=== PATIENT | male | born 1995 | race African-American/Black ===

== ENCOUNTER 2018-01-08 17:13 | Emergency (ER) | payer OTHER ==
[2018-01-08 17:26] VITALS: BP 118/66; PULSE 90; TEMP 98.5; BMI 21.7
--- NOTE | 2018-01-08 17:26 | PDOC ---
Rapid Medical Evaluation Time Seen by Provider: 01/08/18 17:21 Medical Evaluation: 01/08/18 17:21 I have performed a brief in-person evaluation of this patient. The patient presents with a chief complaint of: throat pain and toothache x 2 days. Seen at urgent care received "injection for strep throat". Taking amoxicillin, started yesterday Pertinent physical exam findings are: NAD even and unlabored breathing I have ordered the following: none The patient will proceed o the Ed for further evaluation.
[2018-01-08] MEDS ORDERED: IBUPROFEN 400 MG TABLET (FP) PO ONE ×2 (18:15→18:18)
--- NOTE | 2018-01-08 18:17 | PDOC ---
History of Present Illness - General Chief Complaint: Sore Throat Stated Complaint: SORE THROAT Time Seen by Provider: 01/08/18 17:21 History Source: Patient Exam Limitations: No Limitations - History of Present Illness Initial Comments: 01/08/18 18:19 Pt is a 22 y/o M with no PMH who presents to the ED with throat pain and toothache x 2 days. Seen at urgent care received "injection for strep throat". He is taking amoxicillin as well, which he started taking yesterday. He has not taken any mediation for pain. Denies fevers, chills, ear ache, difficulty swallowing, SOB, CP, n/v/d. Past History - Travel Traveled outside of the country in the last 30 days: No Close contact w/someone who was outside of country & ill: No - Past Medical History Allergies/Adverse Reactions: Allergies Allergy/AdvReac Type Severity Reaction Status Date / Time No Known Allergies Allergy Verified 01/08/18 17:21 Home Medications: Ambulatory Orders Amoxicillin - [Amoxicillin 875mg Tablet -] 875 mg PO BID 01/08/18 Ibuprofen 800 mg PO TID #30 tablet 01/08/18 COPD: No - Suicide/Smoking/Psychosocial Hx Smoking History: Current every day smoker Have you smoked in the past 12 months: Yes Information on smoking cessation initiated: No Hx Alcohol Use: (marijuana) Substance Use Type: Marijuana Review of Systems - Review of Systems Able to Perform ROS?: Yes Comments:: 01/08/18 18:20 CONSTITUTIONAL: Absent: fever, chills, diaphoresis, generalized weakness, malaise, loss of appetite HEENT: Present: sore throat Absent: rhinorrhea, nasal congestion, throat swelling, difficulty swallowing, mouth swelling, ear pain, eye pain, visual Changes CARDIOVASCULAR: Absent: chest pain, loss of consciousness, palpitations, irregular heart rate, peripheral edema RESPIRATORY: Absent: cough, shortness of breath, dyspnea with exertion, orthopnea, wheezing, stridor, hemoptysis GASTROINTESTINAL: Absent: abdominal pain, abdominal distension, nausea, vomiting, diarrhea, constipation, melena, hematochezia GENITOURINARY: Absent: dysuria, frequency, urgency, hesitancy, hematuria, flank pain, genital pain MUSCULOSKELETAL: Absent: myalgia, arthralgia, joint swelling SKIN: Absent: rash, itching, pallor HEMATOLOGIC/IMMUNOLOGIC: Absent: easy bleeding, easy bruising, lymphadenopathy, frequent infections ENDOCRINE: Absent: unexplained weight gain, unexplained weight loss, heat intolerance, cold intolerance NEUROLOGIC: Absent: headache, focal weakness or paresthesias, dizziness, unsteady gait, seizure, mental status changes, bladder or bowel incontinence PSYCHIATRIC: Absent: anxiety, depression, suicidal or homicidal ideation, hallucinations. Is the patient limited Luxembourger proficient: No *Physical Exam - Vital Signs Last Vital Signs Temp Pulse Resp BP Pulse Ox 98.5 F 90 18 118/66 99 01/08/18 17:25 01/08/18 17:25 01/08/18 17:25 01/08/18 17:25 01/08/18 17:25 - Physical Exam Comments: 01/08/18 18:21 GENERAL: Well developed, well nourished. Awake and alert. No acute distress. HEENT: Normocephalic, atraumatic. PERRLA, EOMI. No conjunctival pallor. Sclera are non- icteric. Moist mucous membranes. Oropharynx is clear. Tonsils are 1+ with no exudate or erythema. Uvula is midline. No sinus tenderness to palpation. Good dentition with no evidence of cavity or abscess, or gingivitis NECK: Supple. Full ROM. No JVD. Carotid pulses 2+ and symmetric, without bruits. No thyromegaly. No lymphadenopathy. CARDIOVASCULAR: Regular rate and rhythm. No murmurs, rubs, or gallops. Distal pulses are 2+ and symmetric. PULMONARY: No evidence of respiratory distress. Lungs clear to auscultation bilaterally. No wheezing, rales or rhonchi. SKIN: Warm and dry. Normal capillary refill. No rashes. No jaundice. NEUROLOGICAL: Alert, awake, appropriate. Cranial nerves 2-12 intact. No deficits to light touch and temperature in face, upper extremities and lower extremities. No motor deficits in the in face, upper extremities and lower extremities. Normoreflexic in the upper and lower extremities. Normal speech. Toes are down- going bilaterally. Gait is normal without ataxia. PSYCHIATRIC: Cooperative. Good eye contact. Appropriate mood and affect. Medical Decision Making - Medical Decision Making 01/08/18 18:24 Pt is a 22 y/o M with no PMH who presents to the ED with throat pain and toothache x 2 days. -Exam with no positive findings. Tonsils 1+ with no edema,erythema, or exudate -Will not perform rapid strep as pt already on abx -Pt to continue abx for presumed strep infection -Ibuprofen given for pain relief. -DC home -I discussed the physical exam findings, ancillary test results and final diagnoses with the patient. I answered all of the patient's questions. The patient was satisfied with the care received and felt comfortable with the discharge plan and treatment plan. The Patient agrees to follow up with the primary care physician/specialist within 24-72 hours. Return precautions were given. *DC/Admit/Observation/Transfer Diagnosis at time of Disposition: Pharyngitis Qualifiers: Pharyngitis/tonsillitis etiology: unspecified etiology Qualified Code(s): J02.9 - Acute pharyngitis, unspecified - Discharge Dispostion Disposition: HOME Condition at time of disposition: Stable Decision to Admit order: No - Prescriptions Prescriptions: Ibuprofen 800 mg PO TID #30 tablet - Referrals Referrals: Ion Le MD [Staff Physician] - Benigno Sunshine MD [Staff Physician] - - Patient Instructions Printed Discharge Instructions: DI for Pharyngitis/Tonsillopharyngitis -- Adult Additional Instructions: You have a sore throat. Please continue the amoxicillin 500 mg twice a day for one week. Please finish the prescription even if you feel better. You may take Motrin 800 mg every 8 hours as needed for pain or fever. Warm water gargles and cough drops and just may also help her symptoms. Please throw way your toothbrush 3 days into treatment to prevent reinfection. Please follow up with your primary care doctor next week. Return to emergency department if you have worsening pain, difficulty swallowing , changes in your voice, lightheadedness, dizziness, or any changes in your symptoms. - Post Discharge Activity Forms/Work/School Notes: Back to Work
== END 2018-01-08 18:20 | disposition home or self-care (01) ==
LOC: JERFT 17:13
DX: J02.9 Acute pharyngitis, unspecified (principal)
CPT/HCPCS: 99281-25

== ENCOUNTER 2018-06-13 20:51 | Emergency (ER) | payer OTHER ==
[2018-06-13 20:57] VITALS: BP 136/62; PULSE 82; TEMP 98.4; BMI 23.3
[2018-06-13] MEDS ORDERED: TETANUS AND DIPHTHERIA TOXOID 0.5 ML DISP.SYRIN IM ONE (22:06)
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
== END 2018-06-13 22:19 | disposition left against medical advice (07) ==
LOC: JERFT 20:51
DX: S05.42XA Penetrating wound of orbit with or without foreign body, left eye, initial encounter (principal); W27.8XXA Contact with other nonpowered hand tool, initial encounter; Y93.H3 Activity, building and construction; Y92.89 Other specified places as the place of occurrence of the external cause; Y99.0 Civilian activity done for income or pay
CPT/HCPCS: 99281-25

== ENCOUNTER 2022-05-26 23:11 | Emergency (ER) | payer OTHER ==
[2022-05-26 23:26] VITALS: BP 131/68; PULSE 107; RESP 18; TEMP 101.4; BMI 23.1
[2022-05-26] MEDS ORDERED: ACETAMINOPHEN 500 MG TABLET (FP) PO ONE (23:55)
[2022-05-27] MEDS ORDERED: ACETAMINOPHEN 500 MG TABLET (FP) ONE (00:25)
[2022-05-27] MEDS ORDERED: ITRACONAZOLE 100 MG CAPSULE PO ONE ×2 (00:57→23:57)
[2022-05-27 01:11] LABS: BASO % 0.5 % (0-2.0); EOS % 2.4 % (0-4.5); LYMPH % 16.6 % (8-40); MCH 31.1 pg (25.7-33.7); MCHC 33.3 g/dl (32.0-35.9); MEAN CELL VOLUME 93.4 fl (80-96); MEAN PLT VOLUME 7.6 fl (7.5-11.1); MONO % 6.2 % (3.8-10.2); NEUT % 74.3 % (42.8-82.8); PLATELET COUNT 355 10^3/uL (134-434); RBC 4.82 M/mm3 (4.00-5.60); RDW 12.2 % (11.9-15.9); WHITE BLOOD COUNT 12.3 K/mm3 (4.0-10.0)
[2022-05-27 01:27] LABS: CALCIUM 9.2 mg/dL (8.5-10.1)
[2022-05-27 01:28] LABS: ALBUMIN 3.8 g/dl (3.4-5.0); BLOOD UREA NITROGEN 11.8 mg/dL (7-18)
[2022-05-27 01:31] LABS: CREATININE 1.4 mg/dL (0.55-1.3)
[2022-05-27 01:32] LABS: BILIRUBIN,TOTAL 0.5 mg/dL (0.2-1); TOT PROT 7.6 g/dl (6.4-8.2)
== END 2022-05-27 01:59 | disposition home or self-care (01) ==
LOC: JER 23:11
DX: B35.0 Tinea barbae and tinea capitis (principal)
CPT/HCPCS: 36415; 70486-TC; 80053; 85025; 99284-25

== ENCOUNTER 2022-05-30 02:22 | Emergency (ER) | payer OTHER ==
[2022-05-30 02:32] VITALS: BP 156/81; PULSE 71; RESP 16; TEMP 97.6; BMI 22.6
[2022-05-30] MEDS ORDERED: FAMOTIDINE 10 MG TABLET PO ONE (03:57)
[2022-05-30] MEDS ORDERED: FAMOTIDINE 10 MG TABLET ONE (03:59)
== END 2022-05-30 04:13 | disposition home or self-care (01) ==
LOC: JER 02:22
DX: R14.0 Abdominal distension (gaseous) (principal); F12.90 Cannabis use, unspecified, uncomplicated
CPT/HCPCS: 0241U-QW; 71046-TC-FY; 82962; 93005; 93010; 99285-25

== ENCOUNTER 2023-02-25 20:58 | Emergency (ER) | payer SELFPAY ==
[2023-02-25 21:10] VITALS: BP 118/71; PULSE 99; RESP 18; BMI 23.1
[2023-02-25] MEDS ORDERED: IBUPROFEN 600 MG TABLET (FP) PO ONE ×2 (23:50→23:53)
[2023-02-25] MEDS ORDERED: DOXYCYCLINE HYCLATE 100 MG CAPSULE PO ONE ×2 (23:51→23:54)
== END 2023-02-26 00:44 | disposition home or self-care (01) ==
LOC: JER 20:58 → JERFT 20:58
DX: R22.41 Localized swelling, mass and lump, right lower limb (principal); L03.115 Cellulitis of right lower limb
CPT/HCPCS: 73070-TC-RT-FY; 99283-25

== ENCOUNTER 2024-06-16 11:34 | Emergency (ER) | payer SELFPAY ==
[2024-06-16 11:55] VITALS: BP 128/71; PULSE 82; RESP 20; TEMP 98.1; BMI 23.3
[2024-06-16] MEDS ORDERED: ACETAMINOPHEN 500 MG TABLET (FP) ONE ×2 (12:46→12:47)
[2024-06-16] MEDS: ACETAMINOPHEN 500 MG TABLET (FP) PO ONE (13:53)
[2024-06-16 13:58] LABS: BASO % 0.3 % (0-2.0); EOS % 0.5 % (0-4.5); HEMATOCRIT 46.6 % (35.4-49); HEMOGLOBIN 15.9 GM/dL (11.7-16.9); LYMPH % 15.7 % (8-40); MCH 31.6 pg (25.7-33.7); MCHC 34.2 g/dl (32.0-35.9); MEAN CELL VOLUME 92.6 fl (80-96); MEAN PLT VOLUME 7.6 fl (7.5-11.1); MONO % 4.6 % (3.8-10.2); NEUT % 78.9 % (42.8-82.8); PLATELET COUNT 319 10^3/uL (134-434); RBC 5.04 M/mm3 (4.00-5.60); RDW 12.2 % (11.9-15.9); WHITE BLOOD COUNT 8.2 K/mm3 (4.0-10.0)
[2024-06-16 14:05] LABS: PH,URINE 7.5 (5.0-8.0); URINE APPEARANCE CLEAR; URINE BILIRUBIN NEGATIVE (NEGATIVE); URINE COLOR YELLOW; URINE GLUCOSE (UA) NEGATIVE (NEGATIVE); URINE KETONE NEGATIVE (NEGATIVE); URINE LEUK ESTERASE NEGATIVE (NEGATIVE); URINE NITRITE NEGATIVE (NEGATIVE); URINE PROTEIN NEGATIVE (NEGATIVE); URINE UROBILINOGEN 0.2 mg/dL (0.2-1.0)
[2024-06-16 14:21] LABS: CALCIUM 9.4 mg/dL (8.5-10.1)
[2024-06-16 14:22] LABS: ALBUMIN 4.2 g/dl (3.4-5.0); BLOOD UREA NITROGEN 14.4 mg/dL (7-18)
[2024-06-16 14:25] LABS: CREATININE 1.1 mg/dL (0.55-1.3)
[2024-06-16 14:26] LABS: BILIRUBIN,TOTAL 0.6 mg/dL (0.2-1); TOT PROT 7.9 g/dl (6.4-8.2)
[2024-06-16 15:21] LABS: HIV INTERPRETATION NEGATIVE (NEGATIVE)
== END 2024-06-16 15:31 | disposition home or self-care (01) ==
LOC: JER 11:34
DX: R10.30 Lower abdominal pain, unspecified (principal); Z20.2 Contact with and (suspected) exposure to infections with a predominantly sexual mode of transmission
CPT/HCPCS: 36415; 80053; 81003; 85025; 86803; 87086; 87389; 87491; 87591; 87661; 99283-25